=== PATIENT | female | born 2000 | race Caucasian/White ===

== ENCOUNTER 2022-08-21 14:50 | Inpatient (IN) | payer BC ==
[~2022-08-21] VITALS: Ht 160 cm; Wt 80.3 kg
--- NOTE | 2022-08-22 10:27 | PR ---
[facility] [address] [facility] [place], [place] [address] Signed Progress Notes IP Datetime Report Generated by CPN: 08/22/2022 10:27 PROGRESS NOTES: [id number] Impression: Normal Progression of Labor; Reassuring Heart Rate Procedures: Intrauterine Pressure Catheter; Sterile Vag Exam Plan: Continue Present Management Informed Consent Obtain: Vaginal Delivery VITAL SIGNS: [id number] Vital Signs: Reviewed; Within Normal Limits EXAM: [id number] Dilatation: 3.0 Effacement: 70 Station: -2 Contractions: q 1 minutes MEMBRANES: [id number] Comments: Pt seen and examined. Doing well. IUPC placed w/out difficulty. Will consider augmentation if needed FETUS A: [id number] FHR Baseline: 135 Variability: Moderate 6-25bpm Accelerations: 15X15 Decelerations: None FHR Category: Category I Presentation: Vertex Comments on Fetus A: No evidence of metabolic acidosis FETUS B: [id number] Signing Physician: Pina Roman DO Copies: ~ *Electronically Signed* 08/22/22 1027 PINA ROMAN (ALFA) DO PATIENT NAME: JONNIE ROMO PROGRESS NOTE DATE OF : 00 PHYSICIAN: PINA ROMAN (ALFA) DO RPT #: [id number] REPORT IS CONFIDENTIAL AND NOT TO BE RELEASED WITHOUT AUTHORIZATION
--- NOTE | 2022-08-22 13:46 | PR ---
[facility] [address] [place], [place] [address] Signed Progress Notes IP Datetime Report Generated by CPN: 08/22/2022 13:46 PROGRESS NOTES: [id number] Impression: Normal Progression of Labor; Reassuring Heart Rate Procedures: Sterile Vag Exam Plan: Continue Present Management Informed Consent Obtain: Vaginal Delivery VITAL SIGNS: [id number] Vital Signs: Reviewed; Within Normal Limits EXAM: [id number] Dilatation: 4.0 Effacement: 80 Station: -2 Contractions: q 1 minutes MEMBRANES: [id number] Comments: Pt seen and examined. Doing well. Comfortable w/ contractions. Will continue to monitor. FETUS A: [id number] FHR Baseline: 135 Variability: Moderate 6-25bpm Accelerations: 15X15 Decelerations: None FHR Category: Category I Presentation: Vertex Comments on Fetus A: No evidence of metabolic acidosis FETUS B: [id number] Signing Physician: Pina Roman DO Copies: ~ *Electronically Signed* 08/22/22 1346 PINA ROMAN (ALFA) DO PATIENT NAME: JONNIE ROMO PROGRESS NOTE DATE OF : 00 PHYSICIAN: PINA ROMAN (ALFA) DO RPT #: [id number] REPORT IS CONFIDENTIAL AND NOT TO BE RELEASED WITHOUT AUTHORIZATION
--- NOTE | 2022-08-22 17:28 | PR ---
[facility] [address] [place], [place] [address] Signed Progress Notes IP Datetime Report Generated by CPN: 08/22/2022 17:27 PROGRESS NOTES: [id number] Impression: Normal Progression of Labor; Reassuring Heart Rate Procedures: Sterile Vag Exam Plan: Augmentation Informed Consent Obtain: Vaginal Delivery VITAL SIGNS: [id number] Vital Signs: Reviewed; Within Normal Limits EXAM: [id number] Dilatation: 6.0 Effacement: 80 Station: -2 Contractions: q 1 minutes MEMBRANES: [id number] Comments: Pt seen and examined. Doing well. Epidural bolused and pt now very comfortable. Discussed cervical change and borderline adequacy of MVu's. Discussed option for continued expectant management vs initation of pitocin augmentation. Pt requests augmentation. Low dose pitocin ordered per protocol. All questions answered. FETUS A: [id number] FHR Baseline: 135 Variability: Moderate 6-25bpm Accelerations: 15X15 Decelerations: None FHR Category: Category I Presentation: Vertex Comments on Fetus A: No evidence of metabolic acidosis FETUS B: [id number] Signing Physician: Pina Roman DO Copies: ~ *Electronically Signed* 08/22/22 4809 PINA ROMAN (ALFA) DO PATIENT NAME: JONNIE ROMO PROGRESS NOTE DATE OF : 00 PHYSICIAN: PINA ROMAN (JD) DO RPT #: [id number] REPORT IS CONFIDENTIAL AND NOT TO BE RELEASED WITHOUT AUTHORIZATION
--- NOTE | 2022-08-22 20:10 | PR ---
[facility] [address] [place], [place] [address] Signed Progress Notes IP Datetime Report Generated by CPN: 08/22/2022 20:10 PROGRESS NOTES: [id number] Impression: Normal Progression of Labor; Reassuring Heart Rate Procedures: Sterile Vag Exam Plan: Continue Present Management Informed Consent Obtain: Vaginal Delivery VITAL SIGNS: [id number] Vital Signs: Reviewed; Within Normal Limits EXAM: [id number] Dilatation: 7.0 Effacement: 90 Station: -1 Contractions: q 1 minutes MEMBRANES: [id number] Comments: Pt seen and examined. Doing well. C/O increased pelvic pressure. Reviewed reassuring FHT and contraction pattern on pitocin augmentation. Will continue pitocin per protocol. Pt understands and agrees. All questions answered. FETUS A: [id number] FHR Baseline: 135 Variability: Moderate 6-25bpm Accelerations: 15X15 Decelerations: None FHR Category: Category I Presentation: Vertex Comments on Fetus A: No evidence of metabolic acidosis FETUS B: [id number] Signing Physician: Pina Roman DO Copies: ~ *Electronically Signed* 08/22/22 PINA CANO (ALFA) DO PATIENT NAME: JONNIE ROMO PROGRESS NOTE DATE OF : 00 PHYSICIAN: PINA ROMAN (JD) DO RPT #: [id number] REPORT IS CONFIDENTIAL AND NOT TO BE RELEASED WITHOUT AUTHORIZATION
--- NOTE | 2022-08-22 22:42 | PR ---
[facility] [address] [place], [place] [address] Signed Progress Notes IP Datetime Report Generated by CPN: 08/22/2022 22:42 PROGRESS NOTES: [id number] Impression: Normal Progression of Labor Procedures: Sterile Vag Exam Plan: Continue Present Management Informed Consent Obtain: Vaginal Delivery; Section Delivery VITAL SIGNS: [id number] Vital Signs: Reviewed; Within Normal Limits EXAM: [id number] Dilatation: 7.5 Effacement: 80 Station: -1 Contractions: q 1 minutes MEMBRANES: [id number] Comments: Pt seen and examined. Rebolused by anesthesia and now comfortable. Minimal cervical change on exam and now some slight edema of the cervix. Review pitocin, borderline adequacy of contractions, FHT, EFW, position, and adequate pelvis. Recommend continue trial of vaginal delivery with pitocin augmentation per protocol. Will monitor FHT closely. Discussed indications for if needed. All questions answered. FETUS A: [id number] FHR Baseline: 135 Variability: Moderate 6-25bpm Accelerations: 15X15 Decelerations: None FHR Category: Category I Presentation: Vertex Comments on Fetus A: No evidence of metabolic acidosis FETUS B: [id number] Signing Physician: Pina Roman DO Copies: ~ *Electronically Signed* 08/22/22 5085 PINA ROMAN (ALFA) DO PATIENT NAME: JONNIE ROMO PROGRESS NOTE DATE OF : 00 PHYSICIAN: PINA ROMAN (JD) DO RPT #: [id number] REPORT IS CONFIDENTIAL AND NOT TO BE RELEASED WITHOUT AUTHORIZATION
--- NOTE | 2022-08-23 01:16 | PR ---
[facility] [address] [place], [place] [address] Signed Progress Notes IP Datetime Report Generated by HODAN: 08/23/2022 01:16 PROGRESS NOTES: [id number] Impression: Normal Progression of Labor; Reassuring Heart Rate Procedures: Sterile Vag Exam Plan: Continue Present Management Informed Consent Obtain: Vaginal Delivery; Section Delivery VITAL SIGNS: [id number] Vital Signs: Reviewed; Within Normal Limits EXAM: [id number] Dilatation: 9.0 Effacement: 90 Station: 0 Contractions: q 1 minutes MEMBRANES: [id number] Comments: Pt seen and examined. Doing very well. Was again rebolused by anesthesia and developed some relative hypotension w/ resulting late decels that have resolved w/ repositioning. Now 9/90/0. Discussed close monitoring w/ appropriate stepwise approach if decles continue, but anticipate . All questions answered. FETUS A: [id number] FHR Baseline: 135 Variability: Moderate 6-25bpm Accelerations: 15X15 Decelerations: None FHR Category: Category I Presentation: Vertex Comments on Fetus A: No evidence of metabolic acidosis FETUS B: [id number] Signing Physician: Pina Roman DO Copies: ~ *Electronically Signed* 08/23/22 0116 PINA ROMAN (ALFA) DO PATIENT NAME: JONNIE ROMO PROGRESS NOTE DATE OF : 00 PHYSICIAN: PINA ROMAN (JD) DO RPT #: [id number] REPORT IS CONFIDENTIAL AND NOT TO BE RELEASED WITHOUT AUTHORIZATION
--- NOTE | 2022-08-23 04:58 | PR ---
[facility] [address] [place], [place] [address] Signed Progress Notes IP Datetime Report Generated by CPN: 08/23/2022 04:58 PROGRESS NOTES: [id number] Impression: Normal Progression of Labor; Reassuring Heart Rate Procedures: Sterile Vag Exam Plan: Anticipate Vaginal Delivery Informed Consent Obtain: Vaginal Delivery VITAL SIGNS: [id number] Vital Signs: Reviewed; Within Normal Limits EXAM: [id number] Dilatation: 10.0 Effacement: 100 Station: 2 Contractions: q 1 minutes MEMBRANES: [id number] Comments: Pt seen and examined. Doing well. Now complete. Minimal variability with some subtle late decelerations, but moderate variabilty and acceleration w/ scalp stim. Will start pushing and prepare for . FETUS A: [id number] FHR Baseline: 135 Variability: Moderate 6-25bpm Accelerations: 15X15 Decelerations: None FHR Category: Category I Presentation: Vertex Comments on Fetus A: No evidence of metabolic acidosis FETUS B: [id number] Signing Physician: Pina Roman DO Copies: ~ *Electronically Signed* 08/23/22 0458 PINA ROMAN (ALFA) DO PATIENT NAME: JONNIE ROMO PROGRESS NOTE DATE OF : 00 PHYSICIAN: PINA ROMAN) DO RPT #: [id number] REPORT IS CONFIDENTIAL AND NOT TO BE RELEASED WITHOUT AUTHORIZATION
--- NOTE | 2022-08-23 15:45 | NUR ---
in to check on mom 5/10 pain in back and deepthi area see emar - vitals on both mom and baby done - washed hair and dressed baby per mom request. back to mom to hold - enc. feeding every 2-3 hrs.
--- NOTE | 2022-08-24 06:31 | PR ---
[facility] [address] [facility] [place], [place] [address] Signed PP Progress Notes Datetime Report Generated by CPN: 08/24/2022 06:31 SUBJECTIVE: [id number] Pain: Within Normal Limits Nausea/Vomiting: Denies Flatus: Yes Vital Signs: [id number] Vital Signs: Reviewed; Within Normal Limits Cardiovascular: Normal Respiratory: Normal Abdomen/Uterus: Normal Lochia: Normal Vulva/Perineum: Not Done Breasts: Not Done CVA Tenderness: Normal Extremities: Normal Incision: Not Applicable Progress: Normal Exam Comments: Fundus firm U-2 nontender IMPRESSION/PLAN/PROCEDURES: [id number] Impression: Normal Progression Plan: Discharge Progress Notes: Pt seen and examined. Doing well. Ambulating, voiding, and tolerating full diet. Pain and lochia minimal. well. No fevers/chills or other concerns. Desires d/c home today. Reviewed d/c instructions and medications. F/U in office in 2 wks. Planning IUD at 6 wk pp visit. Signing Physician: Pina Roman DO Copies: ~ *Electronically Signed* 08/24/22 0631 PINA ROMAN (ALFA) DO PATIENT NAME: JONNIE ROMO PROGRESS NOTE DATE OF : 00 PHYSICIAN: PINA ROMAN (JD) DO RPT #: [id number] REPORT IS CONFIDENTIAL AND NOT TO BE RELEASED WITHOUT AUTHORIZATION
== END 2022-08-24 13:33 | disposition home or self-care (01) | DRG 806 ==
LOC: FBC 14:50
PROVIDERS: ADMIT Obstetrics & Gynecology; ATTEND Obstetrics & Gynecology
PROC: 10E0XZZ Delivery of Products of Conception, External Approach (ICD-10-PCS; principal; 2022-08-23)
PROC: 0KQM0ZZ Repair Perineum Muscle, Open Approach (ICD-10-PCS; 2022-08-23)
PROC: 0UQMXZZ Repair Vulva, External Approach (ICD-10-PCS; 2022-08-23)
PROC: 3E0P7VZ Introduction of Hormone into Female Reproductive, Via Natural or Artificial Opening (ICD-10-PCS; 2022-08-23)
PROC: 10H07YZ Insertion of Other Device into Products of Conception, Via Natural or Artificial Opening (ICD-10-PCS; 2022-08-23)
PROC: 10907ZC Drainage of Amniotic Fluid, Therapeutic from Products of Conception, Via Natural or Artificial Opening (ICD-10-PCS; 2022-08-23)
PROC: 00HU33Z Insertion of Infusion Device into Spinal Canal, Percutaneous Approach (ICD-10-PCS; 2022-08-23)
PROC: 3E0R3BZ Introduction of Anesthetic Agent into Spinal Canal, Percutaneous Approach (ICD-10-PCS; 2022-08-23)
DX: O48.0 Post-term pregnancy (principal); D62 Acute posthemorrhagic anemia; Z37.0 Single live birth; Z3A.40 40 weeks gestation of pregnancy; O70.1 Second degree perineal laceration during delivery; O71.82 Other specified trauma to perineum and vulva; Z20.822 Contact with and (suspected) exposure to COVID-19; Z88.0 Allergy status to penicillin; Z90.49 Acquired absence of other specified parts of digestive tract; Z79.899 Other long term (current) drug therapy; Z67.40 Type O blood, Rh positive; O99.03 Anemia complicating the puerperium; I95.9 Hypotension, unspecified; O76 Abnormality in fetal heart rate and rhythm complicating labor and delivery
CPT/HCPCS: 36415; 85027; 86850; 86900; 86901; A9270; J2405; J2590; J2795; J3010; J7121